=== PATIENT | male | born 1955 | race African-American/Black ===

== ENCOUNTER 2018-06-18 03:44 | Emergency (ER) | payer OTHER ==
[2018-06-18 04:18] LABS: #Eosinphils 0.1 thou/uL (0.0-0.7); #Lymphocytes 2.1 thou/uL (1.20-3.40); #Monocytes 0.6 thou/uL (0.11-0.59); #Neutrophils 4.8 thou/uL (1.40-6.50); %Basophils 0.3 % (0.0-1.0); %Eosinophils 1.6 % (0.0-10.0); %Lymphocytes 27.7 % (21.0-51.0); %Monocytes 7.3 % (0.0-10.0); %Neutrophils 63.1 % (42.0-75.0); Hemoglobin 14.4 g/dL (14.0-18.0); Mean Corpuscular HGB CONC 32.6 g/dL (32.0-36.0); Mean Corpuscular Hemoglobin 28.2 pg (27.0-31.0); Mean Corpuscular Volume 86.6 fL (78.0-98.0); Mean Platelet Volume 7.8 fL (7.4-10.4); Platelet Count 183 thou/uL (130-400); RBC Distribution Width 13.1 % (11.5-14.5); Red Blood Cell (RBC) Count 5.12 mill/uL (4.70-6.10); White Blood Cell (WBC) Count 7.6 thou/uL (4.8-10.8)
[2018-06-18 04:37] LABS: ALT (SGPT) 21 U/L (8-55); AST (SGOT) 28 U/L (5-34); Alkaline Phosphatase 55 U/L (40-150); Anion Gap 12 mmol/L (10-20); BUN (Urea Nitrogen) 15 mg/dL (8.4-25.7); Bilirubin, Total 0.4 mg/dL (0.2-1.2); Calc. Creatinine Clearance 0 mL/min (70-130); Calcium 9.3 mg/dL (7.8-10.44); Carbon Dioxide 25 mmol/L (23-31); Chloride 106 mmol/L (98-107); Estimated GFR-MDRD 71; Globulin 3.5 g/dL (2.4-3.5); Glucose 169 mg/dL (80-115); Potassium 3.1 mmol/L (3.5-5.1); Protein, Total 7.5 g/dL (5.8-8.1); Sodium 140 mmol/L (136-145)
[2018-06-18] MEDS ORDERED: Adacel (T-DAP) 0.5 ML VIAL ONE (04:43)
[2018-06-18] MEDS ORDERED: CEFAZOLIN/Water 2 GM/20 ML SYRINGE ONE (04:43)
[2018-06-18] MEDS ORDERED: Lidocaine 1% w/Epinephrine 1:100K 20 ML VIAL ONE (06:01)
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
--- NOTE | 2018-06-18 08:13 | OP ---
DATE OF PROCEDURE: 06/18/2018 REASON FOR PROCEDURE: Multiple scalp lacerations, complex. Consent was obtained verbally by patient at the bedside. HOSPITALITY SPECIALIST: None. SURGEON: Mauro Larios PA-C DESCRIPTION OF PROCEDURE: After consent was obtained, the patient was supine in the bed. Appropriate equipment was brought to the bedside and coordinated with the emergency department RN. I completed a right supraorbital nerve block with good anesthesia of the forehead with 1% lidocaine with epi. I then focused my attention to the lacerations above the forehead and instilled local lidocaine throughout the skin and was able to achieve good anesthesia for both lacerations. Total lidocaine usage was 13 mL, it was 1% with epinephrine. The patient after anesthesia with local confirmed, the wound was irrigated with a jet irrigation with warm saline. The entire wound was able to be evaluated. There was no debris. No foreign bodies that were noted in either wound. The most anterior wound is larger, and has a flap. It does involve the glial layer in one place with a small flap, it does not have much disruption. There is no active bleeding, no vessel involvement that I am able to appreciate. There is a small hematoma about the right occiput noted around the wound. After thorough irrigation with 1 liter of saline the glial layer was closed with 1 interrupted 5-0 Vicryl suture. Then, the skin was closed on the forehead with a simple interrupted 5-0 nylon sutures, a total of 9 with good approximation of the skin. The remainder of the wound was closed with denisha. Both the posterior portion of the scalp wound and the occiput wound a total of 12 denisha were used. The forehead was lastly completed approximation with Dermabond. The patient tolerated the procedure well and the margins are approximated and intact. Bleeding has remained controlled. I have given wound care instructions. A dressing will be applied by nursing with antibiotic ointment. The patient is to have his facial forehead nylon sutures removed in 5 -6 days. The denisha in the scalp can be removed in 7-10 days. He is understood the same. No blood loss. MTDD
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
== END 2018-06-18 08:35 | disposition home or self-care (01) ==
LOC: ERS 03:44
DX: S12.400A Unspecified displaced fracture of fifth cervical vertebra, initial encounter for closed fracture (principal); S12.500A Unspecified displaced fracture of sixth cervical vertebra, initial encounter for closed fracture; S01.01XA Laceration without foreign body of scalp, initial encounter; E78.5 Hyperlipidemia, unspecified; I10 Essential (primary) hypertension; Z87.442 Personal history of urinary calculi; V60.5XXA Driver of heavy transport vehicle injured in collision with pedestrian or animal in traffic accident, initial encounter
CPT/HCPCS: 70450; 71045; 72125; 80053; 85025; 86850; 86900; 86901; 90471; 90715; 96365; G0390; J2001

== ENCOUNTER 2018-08-19 09:37 | Outpatient (CLI) | payer OTHER ==
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
== END 2018-08-19 09:38 | disposition home or self-care (01) ==
LOC: TBSIIMAG 09:37
PROVIDERS: ATTEND Neurological Surgery
DX: S12.9XXA Fracture of neck, unspecified, initial encounter (principal); M46.92 Unspecified inflammatory spondylopathy, cervical region
CPT/HCPCS: 72040

== ENCOUNTER 2020-12-07 14:47 | Inpatient (IN) | payer OTHER, SELFPAY ==
[2020-12-07 15:44] LABS: #Lymphocytes 0.7 thou/uL (1.20-3.40); #Monocytes 0.6 thou/uL (0.11-0.59); #Neutrophils 10.8 thou/uL (1.40-6.50); %Monocytes 4.6 % (0.0-10.0); %Neutrophils 89.4 % (42.0-75.0); Hemoglobin 14.7 g/dL (14.0-18.0); Mean Corpuscular HGB CONC 32.5 g/dL (32.0-36.0); Mean Corpuscular Hemoglobin 28.4 pg (27.0-31.0); Mean Corpuscular Volume 87.4 fL (78.0-98.0); Mean Platelet Volume 7.7 fL (7.4-10.4); Platelet Count 184 thou/uL (130-400); RBC Distribution Width 12.7 % (11.5-14.5); Red Blood Cell (RBC) Count 5.16 mill/uL (4.70-6.10); White Blood Cell (WBC) Count 12.1 thou/uL (4.8-10.8)
[2020-12-07] MEDS ORDERED: Acetaminophen 325 MG TAB PO PRN (16:14)
[2020-12-07] MEDS ORDERED: Dextrose 50% Abboject 50 ML SYRINGE SLOW IVP PRN (16:14)
[2020-12-07] MEDS ORDERED: Ondansetron PF 4 MG/2 ML Vial IVP PRN (16:14)
[2020-12-07] MEDS ORDERED: Ondansetron ODT 4 MG TAB PO PRN (16:14)
[2020-12-07] MEDS ORDERED: Dextrose 5% in Water 1,000 ML IV PRN (16:14)
[2020-12-07] MEDS ORDERED: HumaLOG 300 UNITS/3 ML VIAL SC PRN ×2 (16:16)
[2020-12-07] MEDS ORDERED: hydrALAZINE 20 MG/ML VIAL SLOW IVP PRN (16:18)
[2020-12-07] MEDS ORDERED: Acetaminophen 500 MG TAB PO PRN (16:29)
[2020-12-07] MEDS ORDERED: Lactated Ringer's 1,000 ML IV SCH (16:30)
[2020-12-07] MEDS ORDERED: Hydrochlorothiazide 25 MG TAB PO SCH (17:00)
[2020-12-07 17:30] LABS: Anion Gap 11 mmol/L (10-20); BUN (Urea Nitrogen) 10 mg/dL (8.4-25.7); Calc. Creatinine Clearance 0 mL/min (70-130); Carbon Dioxide 28 mmol/L (23-31); Chloride 105 mmol/L (98-107); Potassium 3.4 mmol/L (3.5-5.1); Sodium 141 mmol/L (136-145)
[2020-12-07 17:31] LABS: ALT (SGPT) 32 U/L (8-55); AST (SGOT) 28 U/L (5-34); Albumin 4.1 g/dL (3.4-4.8); Alkaline Phosphatase 49 U/L (40-110); Bilirubin, Total 0.6 mg/dL (0.2-1.2); Calcium 8.6 mg/dL (7.8-10.44); Globulin 3.5 g/dL (2.4-3.5); Glucose 145 mg/dL (80-115); Protein, Total 7.6 g/dL (5.8-8.1)
[2020-12-07 18:22] VITALS: BMI 36.5
[2020-12-07] MEDS ORDERED: Ketorolac Tromethamine 30 MG/ML VIAL IVP PRN (19:08)
[2020-12-07] MEDS: Lactated Ringer's 1,000 ML IV SCH (20:00)
[2020-12-07] MEDS: cefTRIAXone\\ROCEPHIN 2 GM in Sodium Chloride 0.9% 100 ML IVPB SCH (20:00)
[2020-12-07] MEDS: metroNIDAZOLE 500 MG in Premix Bag 1 BAG IVPB SCH (22:12)
[2020-12-07 22:55] LABS: Amphetamine Not Detected (NotDetected); Barbiturates Screen Not Detected (NotDetected); Benzodiazepine Screen Not Detected (NotDetected); Cocaine Metabolite Screen Not Detected (NotDetected); Medtox Control Line Valid? VALID (VALID); Medtox Reader # READER 1; Methadone Not Detected (NotDetected); Methamphetamine Not Detected (NotDetected); Opiate Screen Detected (NotDetected); Oxycodone Screen Not Detected (NotDetected); Phencyclidine (PCP) Not Detected (NotDetected); THC/Cannabinoid Screen Not Detected (NotDetected); Tricyclic Screen Not Detected (NotDetected)
[2020-12-08 04:40] LABS: #Lymphocytes 1.5 thou/uL (1.20-3.40); #Monocytes 1.3 thou/uL (0.11-0.59); %Basophils 0.1 % (0.0-1.0); %Eosinophils 0.1 % (0.0-10.0); %Lymphocytes 10.2 % (21.0-51.0); %Monocytes 8.6 % (0.0-10.0); Hemoglobin 13.4 g/dL (14.0-18.0); Mean Corpuscular HGB CONC 32.3 g/dL (32.0-36.0); Mean Corpuscular Hemoglobin 27.9 pg (27.0-31.0); Mean Corpuscular Volume 86.4 fL (78.0-98.0); Mean Platelet Volume 7.8 fL (7.4-10.4); Platelet Count 180 thou/uL (130-400); RBC Distribution Width 12.9 % (11.5-14.5); Red Blood Cell (RBC) Count 4.82 mill/uL (4.70-6.10); White Blood Cell (WBC) Count 14.8 thou/uL (4.8-10.8)
[2020-12-08 05:05] LABS: Anion Gap 12 mmol/L (10-20); BUN (Urea Nitrogen) 11 mg/dL (8.4-25.7); Calc. Creatinine Clearance 114 mL/min (70-130); Calcium 8.1 mg/dL (7.8-10.44); Carbon Dioxide 27 mmol/L (23-31); Chloride 105 mmol/L (98-107); Glucose 142 mg/dL (80-115); Sodium 141 mmol/L (136-145)
[2020-12-08 05:08] LABS: Potassium 2.8 mmol/L (3.5-5.1)
[2020-12-08] MEDS: metroNIDAZOLE 500 MG in Premix Bag 1 BAG IVPB SCH ×3 (05:48→21:56)
[2020-12-08] MEDS: Potassium Chloride 20 MEQ in Premix Bag 1 BAG IVPB SCH ×2 (05:52→09:52)
[2020-12-08] MEDS: Lactated Ringer's 1,000 ML IV SCH ×4 (07:43→23:54)
[2020-12-08] MEDS ORDERED: Magnesium 2 GM/50 ML 2 GM in Premix Bag 1 BAG IVPB SCH (07:45)
[2020-12-08] MEDS ORDERED: Potassium Chloride 20 MEQ TAB PO SCH (07:45)
[2020-12-08 08:03] LABS: Phosphorus 2.3 mg/dL (2.3-4.7)
[2020-12-08] MEDS: Pantoprazole 40 MG VIAL IVP SCH (08:26)
[2020-12-08] MEDS: Hydrochlorothiazide 25 MG TAB PO SCH (08:27)
[2020-12-08] MEDS ORDERED: Enoxaparin Sodium 40 MG/0.4 ML SYRINGE SC SCH (09:00)
[2020-12-08] MEDS: Amlodipine 5 mg/Benazepril 20 mg CAP PO SCH (09:52)
[2020-12-08 11:10] LABS: INR-International Normal Ratio 1.1; Prothrombin Time 14.6 sec (12.0-14.7)
[2020-12-08 11:11] LABS: PTT 29.5 sec (22.9-36.1)
[2020-12-08 11:58] LABS: SARS-CoV-2 NAA Rapid Test Not Detected (NotDetected)
[2020-12-08] MEDS ORDERED: Fentanyl 100 MCG/2 ML VIAL ONE (13:21)
[2020-12-08 13:26] LABS: Anion Gap 13 mmol/L (10-20); BUN (Urea Nitrogen) 10 mg/dL (8.4-25.7); Calc. Creatinine Clearance 113 mL/min (70-130); Calcium 8.4 mg/dL (7.8-10.44); Carbon Dioxide 27 mmol/L (23-31); Chloride 102 mmol/L (98-107); Glucose 133 mg/dL (80-115); Potassium 3.2 mmol/L (3.5-5.1); Sodium 139 mmol/L (136-145)
[2020-12-08] MEDS ORDERED: metroNIDAZOLE 500 MG/100 ML BAG ONE (13:26)
[2020-12-08] MEDS ORDERED: Bupivacaine 0.25% HCL 30 ML VIAL ONE (13:29)
[2020-12-08] MEDS ORDERED: Lidocaine 1% w/Epinephrine 1:100K 20 ML VIAL ONE (13:29)
[2020-12-08] MEDS ORDERED: Lidocaine 1% PF 5 ML VIAL ONE (14:03)
[2020-12-08] MEDS ORDERED: Rocuronium Bromide 10 MG/ML (10ML VIAL) ONE (14:03)
[2020-12-08] MEDS ORDERED: ePHEDrine 50 MG/ML VIAL ONE (14:03)
[2020-12-08] MEDS ORDERED: PHENYLEPHRINE-NS 100 MCG/ML 10 ML SYRINGE ONE (14:03)
[2020-12-08] MEDS ORDERED: Calcium Chloride 1 GM/10 ML Abboject SYRINGE ONE (14:03)
[2020-12-08] MEDS ORDERED: PROPOFOL 200 MG/20 ML VIAL ONE (14:03)
[2020-12-08] MEDS ORDERED: Glycopyrrolate 0.2 MG/ML 5 ML SYRINGE ONE (14:03)
[2020-12-08] MEDS ORDERED: SUGAMMADEX SODIUM 200 MG/2 ML VIAL ONE (15:29)
[2020-12-08] MEDS ORDERED: traMADol HCl 50 MG TAB PO PRN (15:53)
[2020-12-08] MEDS ORDERED: Promethazine HCl 25 MG/ML VIAL SLOW IVP PRN (15:54)
[2020-12-08] MEDS ORDERED: Ondansetron HCl/PF 4 MG/2 ML Vial IVP PRN (15:54)
[2020-12-08] MEDS ORDERED: Promethazine HCl 25 MG/ML VIAL IM PRN (15:54)
[2020-12-08] MEDS: traMADol HCl 50 MG TAB PO SCH ×2 (16:54→21:53)
[2020-12-08] MEDS: cefTRIAXone\\ROCEPHIN 2 GM in Sodium Chloride 0.9% 100 ML IVPB SCH (16:56)
[2020-12-08] MEDS: Acetaminophen 500 MG TAB PO SCH ×2 (18:08→23:52)
[2020-12-09] MEDS: traMADol HCl 50 MG TAB PO SCH ×3 (04:23→15:07)
[2020-12-09] MEDS: metroNIDAZOLE 500 MG in Premix Bag 1 BAG IVPB SCH (05:20)
[2020-12-09] MEDS: Acetaminophen 500 MG TAB PO SCH ×2 (05:21→13:19)
[2020-12-09 05:32] LABS: ALT (SGPT) 76 U/L (8-55); AST (SGOT) 66 U/L (5-34); Albumin 3.4 g/dL (3.4-4.8); Alkaline Phosphatase 46 U/L (40-110); Anion Gap 12 mmol/L (10-20); BUN (Urea Nitrogen) 10 mg/dL (8.4-25.7); Bilirubin, Direct 0.6 mg/dL (0.1-0.3); Bilirubin, Total 1.3 mg/dL (0.2-1.2); Calc. Creatinine Clearance 118 mL/min (70-130); Calcium 8.5 mg/dL (7.8-10.44); Carbon Dioxide 29 mmol/L (23-31); Chloride 100 mmol/L (98-107); Glucose 119 mg/dL (80-115); Potassium 3.2 mmol/L (3.5-5.1); Protein, Total 6.9 g/dL (5.8-8.1); Sodium 138 mmol/L (136-145)
[2020-12-09 05:52] LABS: Eosinophils 2 % (0-10); Hemoglobin 13.5 g/dL (14.0-18.0); Lymphocytes 11 % (21-51); MDiff Complete? YES; Mean Corpuscular HGB CONC 31.8 g/dL (32.0-36.0); Mean Corpuscular Hemoglobin 27.7 pg (27.0-31.0); Mean Corpuscular Volume 87.3 fL (78.0-98.0); Mean Platelet Volume 7.7 fL (7.4-10.4); Monocytes 7 % (0-10); Neutrophil 80 % (42-75); Platelet Count 171 thou/uL (130-400); Platelet Morphology Comment Appears Adequate; RBC Distribution Width 13.1 % (11.5-14.5); Red Blood Cell (RBC) Count 4.87 mill/uL (4.70-6.10); White Blood Cell (WBC) Count 16.3 thou/uL (4.8-10.8)
[2020-12-09] MEDS ORDERED: Potassium Chloride 20 MEQ TAB PO SCH (06:15)
[2020-12-09] MEDS ORDERED: Amlodipine 5 mg/Benazepril 20 mg CAP PO SCH (09:00)
[2020-12-09] MEDS: Hydrochlorothiazide 25 MG TAB PO SCH (09:39)
[2020-12-09] MEDS: Amlodipine 5 mg/Benazepril 20 mg CAP PO SCH (09:39)
[2020-12-09] MEDS: Pantoprazole 40 MG VIAL IVP SCH (09:39)
[2020-12-09 13:19] VITALS: BP 142/84; TEMP 98.7
[2020-12-09] MEDS ORDERED: metroNIDAZOLE 500 MG TAB PO SCH (15:00)
== END 2020-12-09 15:45 | disposition home or self-care (01) | DRG 418 ==
LOC: ERS 14:47 → ONC 15:26 → INTOOBSV 15:26 → OBSVTOIN 12-09 06:09
PROVIDERS: ADMIT Student in an Organized Health Care Education/Training Program; ATTEND Student in an Organized Health Care Education/Training Program
PROC: 0FT44ZZ Resection of Gallbladder, Percutaneous Endoscopic Approach (ICD-10-PCS; principal; 2020-12-08)
DX: K80.00 Calculus of gallbladder with acute cholecystitis without obstruction (principal); K56.0 Paralytic ileus; Z20.822 Contact with and (suspected) exposure to COVID-19; K82.A1 Gangrene of gallbladder in cholecystitis; K66.0 Peritoneal adhesions (postprocedural) (postinfection); I10 Essential (primary) hypertension; E78.5 Hyperlipidemia, unspecified; E11.9 Type 2 diabetes mellitus without complications; K57.30 Diverticulosis of large intestine without perforation or abscess without bleeding; E87.6 Hypokalemia; E78.00 Pure hypercholesterolemia, unspecified; R19.5 Other fecal abnormalities; E66.01 Morbid (severe) obesity due to excess calories; Z68.36 Body mass index [BMI] 36.0-36.9, adult; Z79.84 Long term (current) use of oral hypoglycemic drugs; Z79.899 Other long term (current) drug therapy; Z87.442 Personal history of urinary calculi
CPT/HCPCS: 36415; 36416; 76705; 80048; 80076; 80306; 83735; 84100; 85025; 85610; 85730; 86850; 86900; 86901; 88304; 96365; 96366; 96367; 96375; 96376; 99285; C9113; G0378; J0696; J1885; J2704; J3010; J3475; J3480; J3490; S0020; U0002

== ENCOUNTER 2020-12-24 15:35 | Inpatient (IN) | payer OTHER, SELFPAY ==
[~2020-12-24 15:35] MED LIST: Iopamidol-370 76% 500 ML 1 ML ONE
[2020-12-24 16:55] LABS: #Eosinphils 0.1 thou/uL (0.0-0.7); #Lymphocytes 1.5 thou/uL (1.20-3.40); #Monocytes 0.5 thou/uL (0.11-0.59); #Neutrophils 3.4 thou/uL (1.40-6.50); %Basophils 0.4 % (0.0-1.0); %Eosinophils 1.3 % (0.0-10.0); %Lymphocytes 27.9 % (21.0-51.0); %Monocytes 8.5 % (0.0-10.0); %Neutrophils 61.8 % (42.0-75.0); Mean Corpuscular HGB CONC 33.1 g/dL (32.0-36.0); Mean Corpuscular Hemoglobin 28.9 pg (27.0-31.0); Mean Corpuscular Volume 87.2 fL (78.0-98.0); Mean Platelet Volume 7.3 fL (7.4-10.4); Platelet Count 307 thou/uL (130-400); RBC Distribution Width 12.8 % (11.5-14.5); White Blood Cell (WBC) Count 5.5 thou/uL (4.8-10.8)
[2020-12-24 17:22] LABS: ALT (SGPT) 301 U/L (8-55); AST (SGOT) 477 U/L (5-34); Alkaline Phosphatase 91 U/L (40-110); Anion Gap 11 mmol/L (10-20); BUN (Urea Nitrogen) 10 mg/dL (8.4-25.7); Bilirubin, Total 2.1 mg/dL (0.2-1.2); Calc. Creatinine Clearance 0 mL/min (70-130); Calcium 9.1 mg/dL (7.8-10.44); Carbon Dioxide 32 mmol/L (23-31); Chloride 99 mmol/L (98-107); Globulin 3.7 g/dL (2.4-3.5); Glucose 121 mg/dL (80-115); Potassium 3.2 mmol/L (3.5-5.1); Protein, Total 7.7 g/dL (5.8-8.1); Sodium 139 mmol/L (136-145)
[2020-12-24 17:39] LABS: Lipase 1134 U/L (8-78)
[2020-12-24] MEDS ORDERED: Ondansetron PF 4 MG/2 ML Vial ONE (18:05)
[2020-12-24] MEDS ORDERED: Morphine 4 MG/ML VIAL ONE (18:05)
[2020-12-24 19:57] LABS: Bilirubin Negative (Negative); Blood, Urine Negative (Negative); Clarity Clear (Clear); Glucose, Urine (Dipstick) Normal (Negative); Ketone, Urine Negative (Negative); Leukocyte Negative Leu/uL (Negative); Nitrite Negative (Negative); Protein, Urine (Dipstick) Negative (Neg-Trace); Specific Gravity, Urine 1.028 (1.002-1.036); Urobilinogen Normal mg/dL (Less than 2)
[2020-12-24] MEDS ORDERED: Morphine 4 MG/ML VIAL SLOW IVP PRN (21:35)
[2020-12-24] MEDS ORDERED: Ondansetron PF 4 MG/2 ML Vial IVP PRN ×2 (21:45→22:01)
[2020-12-24] MEDS ORDERED: Ondansetron ODT 4 MG TAB SL PRN (21:45)
[2020-12-24] MEDS ORDERED: Sodium Chloride 0.9% 1,000 ML IV SCH (21:45)
[2020-12-24 22:15] LABS: Amphetamine Not Detected (NotDetected); Barbiturates Screen Not Detected (NotDetected); Benzodiazepine Screen Not Detected (NotDetected); Cocaine Metabolite Screen Not Detected (NotDetected); Medtox Control Line Valid? VALID (VALID); Medtox Reader # READER 1; Methadone Not Detected (NotDetected); Methamphetamine Not Detected (NotDetected); Opiate Screen Detected (NotDetected); Oxycodone Screen Not Detected (NotDetected); Phencyclidine (PCP) Not Detected (NotDetected); THC/Cannabinoid Screen Not Detected (NotDetected); Tricyclic Screen Not Detected (NotDetected)
[2020-12-24] MEDS ORDERED: Sodium Chloride 0.9% (PF) 10 ML VIAL FS PRN (22:15)
[2020-12-24 22:27] VITALS: BMI 36.2
[2020-12-24] MEDS: Lactated Ringer's 1,000 ML IV SCH (22:33)
[2020-12-24] MEDS: Potassium Chloride 20 MEQ in Premix Bag 1 BAG IVPB SCH (22:37)
[2020-12-24 22:45] LABS: Hemoglobin A1c 6.9 % (4.0-6.0)
[2020-12-25] MEDS: Potassium Chloride 20 MEQ in Premix Bag 1 BAG IVPB SCH (02:11)
[2020-12-25] MEDS: Lactated Ringer's 1,000 ML IV SCH ×5 (02:11→18:16)
[2020-12-25] MEDS: Morphine 4 MG/ML VIAL SLOW IVP PRN ×2 (03:14→11:58)
[2020-12-25 06:11] LABS: #Eosinphils 0.1 thou/uL (0.0-0.7); #Lymphocytes 1.6 thou/uL (1.20-3.40); #Monocytes 0.4 thou/uL (0.11-0.59); #Neutrophils 2.9 thou/uL (1.40-6.50); %Basophils 0.2 % (0.0-1.0); %Eosinophils 1.7 % (0.0-10.0); %Lymphocytes 31.2 % (21.0-51.0); %Monocytes 8.6 % (0.0-10.0); %Neutrophils 58.3 % (42.0-75.0); Hemoglobin 13.7 g/dL (14.0-18.0); Mean Corpuscular HGB CONC 32.3 g/dL (32.0-36.0); Mean Corpuscular Volume 86.6 fL (78.0-98.0); Mean Platelet Volume 7.5 fL (7.4-10.4); Platelet Count 284 thou/uL (130-400); RBC Distribution Width 12.8 % (11.5-14.5); Red Blood Cell (RBC) Count 4.91 mill/uL (4.70-6.10)
[2020-12-25 06:39] LABS: ALT (SGPT) 399 U/L (8-55); AST (SGOT) 370 U/L (5-34); Albumin 3.5 g/dL (3.4-4.8); Alkaline Phosphatase 109 U/L (40-110); Anion Gap 14 mmol/L (10-20); BUN (Urea Nitrogen) 8 mg/dL (8.4-25.7); Bilirubin, Total 4.3 mg/dL (0.2-1.2); Calc. Creatinine Clearance 148 mL/min (70-130); Calcium 8.8 mg/dL (7.8-10.44); Carbon Dioxide 28 mmol/L (23-31); Cardiac Risk 4.8 (Less than 4.5); Chloride 99 mmol/L (98-107); Cholesterol 159 mg/dl (< 200 Desired); Globulin 3.3 g/dL (2.4-3.5); Glucose 139 mg/dL (80-115); HDL Cholesterol 33 mg/dL (>60 Neg Risk); LDL Cholesterol, Calculated 94 mg/dL; Potassium 3.1 mmol/L (3.5-5.1); Protein, Total 6.8 g/dL (5.8-8.1); Sodium 138 mmol/L (136-145); Triglycerides 162 mg/dL (Less than 150)
[2020-12-25] MEDS ORDERED: Dextrose 5% in Water 1,000 ML IV PRN (07:01)
[2020-12-25] MEDS ORDERED: HumaLOG 300 UNITS/3 ML VIAL SC PRN ×2 (07:01)
[2020-12-25] MEDS ORDERED: Dextrose 50% Abboject 50 ML SYRINGE SLOW IVP PRN (07:01)
[2020-12-25] MEDS ORDERED: Potassium Chloride 20 MEQ in Premix Bag 1 BAG IVPB SCH (07:15)
[2020-12-25] MEDS ORDERED: Potassium Chloride 20 MEQ in Sodium Chloride 0.9% 250 ML 250 ML IVPB SCH (07:30)
[2020-12-25] MEDS: Enoxaparin Sodium 40 MG/0.4 ML SYRINGE SC SCH (08:10)
[2020-12-25] MEDS: Famotidine/PF 20 mg/2ml Vial SLOW IVP SCH (08:10)
[2020-12-25 12:43] LABS: SARS-CoV-2 PCR by NAA Not Detected (NotDetected)
[2020-12-25 14:13] LABS: HBCM Index 0.08 S/CO (0-0.79); HBSAg Index 0.19 S/CO (0-0.99); Hep A IgM AB Non-Reactive (NonReactive); Hep A IgM S/CO 0.21 S/CO (0-0.79); Hep B Surf Ag Non-Reactive S/CO (NonReactive); Hep C IgG Ab Non-Reactive (NonReactive); Hep C Index 0.07 S/CO (0-0.79); Hepatitis B Core IgM Abs Non-Reactive (NonReactive)
[2020-12-25] MEDS ORDERED: Pantoprazole 40 MG VIAL IVP SCH (21:00)
[2020-12-26] MEDS: Lactated Ringer's 1,000 ML IV SCH ×6 (03:34→20:53)
[2020-12-26 06:05] LABS: #Eosinphils 0.1 thou/uL (0.0-0.7); #Lymphocytes 1.8 thou/uL (1.20-3.40); #Monocytes 0.6 thou/uL (0.11-0.59); #Neutrophils 2.9 thou/uL (1.40-6.50); %Basophils 0.6 % (0.0-1.0); %Eosinophils 2.3 % (0.0-10.0); %Lymphocytes 32.5 % (21.0-51.0); %Monocytes 11.5 % (0.0-10.0); %Neutrophils 53.1 % (42.0-75.0); Hemoglobin 12.4 g/dL (14.0-18.0); Mean Corpuscular HGB CONC 33.5 g/dL (32.0-36.0); Mean Corpuscular Volume 86.8 fL (78.0-98.0); Mean Platelet Volume 7.5 fL (7.4-10.4); Platelet Count 249 thou/uL (130-400); RBC Distribution Width 12.7 % (11.5-14.5); Red Blood Cell (RBC) Count 4.29 mill/uL (4.70-6.10); White Blood Cell (WBC) Count 5.5 thou/uL (4.8-10.8)
[2020-12-26 06:29] LABS: ALT (SGPT) 242 U/L (8-55); AST (SGOT) 111 U/L (5-34); Alkaline Phosphatase 97 U/L (40-110); Anion Gap 14 mmol/L (10-20); BUN (Urea Nitrogen) 8 mg/dL (8.4-25.7); Bilirubin, Total 1.3 mg/dL (0.2-1.2); Calc. Creatinine Clearance 128 mL/min (70-130); Calcium 8.5 mg/dL (7.8-10.44); Carbon Dioxide 27 mmol/L (23-31); Chloride 104 mmol/L (98-107); Globulin 3.1 g/dL (2.4-3.5); Glucose 118 mg/dL (80-115); Potassium 3.5 mmol/L (3.5-5.1); Protein, Total 6.1 g/dL (5.8-8.1); Sodium 141 mmol/L (136-145)
[2020-12-26] MEDS: Famotidine/PF 20 mg/2ml Vial SLOW IVP SCH (07:56)
[2020-12-26] MEDS: Enoxaparin Sodium 40 MG/0.4 ML SYRINGE SC SCH (07:56)
[2020-12-26] MEDS ORDERED: Iothalamate Meglumine 60% 50 ML VIAL FS ONE (12:59)
[2020-12-26] MEDS ORDERED: Indomethacin 50 MG SUPP ONE (13:00)
[2020-12-26] MEDS ORDERED: Fentanyl 100 MCG/2 ML VIAL ONE (13:11)
[2020-12-26] MEDS ORDERED: Levofloxacin 500 mg/D5W 100 ml Premix Bag ONE (13:14)
[2020-12-26] MEDS ORDERED: Ondansetron PF 4 MG/2 ML Vial ONE (13:26)
[2020-12-26] MEDS ORDERED: PROPOFOL 200 MG/20 ML VIAL ONE (13:26)
[2020-12-26] MEDS ORDERED: Glycopyrrolate 0.2 MG/ML 5 ML SYRINGE ONE (13:26)
[2020-12-26] MEDS ORDERED: Rocuronium Bromide 10 MG/ML (10ML VIAL) ONE (13:26)
[2020-12-26] MEDS ORDERED: Lidocaine 1% PF 5 ML VIAL ONE (13:26)
[2020-12-26] MEDS ORDERED: Ondansetron HCl/PF 4 MG/2 ML Vial IVP PRN (14:19)
[2020-12-26] MEDS ORDERED: Promethazine HCl 25 MG/ML VIAL SLOW IVP PRN (14:19)
[2020-12-26] MEDS ORDERED: Promethazine HCl 25 MG/ML VIAL IM PRN (14:19)
[2020-12-27] MEDS: Lactated Ringer's 1,000 ML IV SCH ×2 (01:21→05:10)
[2020-12-27 06:59] LABS: #Eosinphils 0.1 thou/uL (0.0-0.7); #Monocytes 0.4 thou/uL (0.11-0.59); #Neutrophils 2.5 thou/uL (1.40-6.50); %Basophils 0.7 % (0.0-1.0); %Eosinophils 1.9 % (0.0-10.0); %Lymphocytes 39.7 % (21.0-51.0); %Monocytes 8.2 % (0.0-10.0); %Neutrophils 49.4 % (42.0-75.0); Hemoglobin 13.8 g/dL (14.0-18.0); Mean Corpuscular HGB CONC 32.6 g/dL (32.0-36.0); Mean Corpuscular Hemoglobin 28.5 pg (27.0-31.0); Mean Corpuscular Volume 87.4 fL (78.0-98.0); Mean Platelet Volume 7.8 fL (7.4-10.4); Platelet Count 245 thou/uL (130-400); RBC Distribution Width 12.8 % (11.5-14.5); Red Blood Cell (RBC) Count 4.86 mill/uL (4.70-6.10)
[2020-12-27 07:25] LABS: ALT (SGPT) 173 U/L (8-55); AST (SGOT) 62 U/L (5-34); Albumin 3.3 g/dL (3.4-4.8); Alkaline Phosphatase 89 U/L (40-110); Anion Gap 15 mmol/L (10-20); BUN (Urea Nitrogen) 8 mg/dL (8.4-25.7); Calc. Creatinine Clearance 127 mL/min (70-130); Calcium 8.4 mg/dL (7.8-10.44); Carbon Dioxide 21 mmol/L (23-31); Chloride 103 mmol/L (98-107); Globulin 3.6 g/dL (2.4-3.5); Glucose 127 mg/dL (80-115); Lipase 30 U/L (8-78); Potassium 3.8 mmol/L (3.5-5.1); Protein, Total 6.9 g/dL (5.8-8.1); Sodium 135 mmol/L (136-145)
[2020-12-27] MEDS: Enoxaparin Sodium 40 MG/0.4 ML SYRINGE SC SCH (08:05)
[2020-12-27] MEDS: Famotidine/PF 20 mg/2ml Vial SLOW IVP SCH (08:05)
[2020-12-27 10:52] VITALS: BP 111/73; TEMP 98.2
[2020-12-28 15:01] LABS: ANA Symphony (Qualitative) Negative (Negative); ANA Symphony (Quantitative) 0.2 Ratio (< 0.7 Negative); dsDNA IgG Antibody 0.6 IU/mL (<10 Negative)
[2020-12-28 15:02] LABS: EliA Vaculitis New Method **** NEW METHOD ****; Mitochondrial Ab 1.3 U/mL (<4 Negative)
== END 2020-12-27 13:56 | disposition home or self-care (01) | DRG 440 ==
LOC: ERS 15:35 → T4-B 20:10
PROVIDERS: ADMIT Family Medicine; ATTEND Family Medicine
PROC: 0FJB8ZZ Inspection of Hepatobiliary Duct, Via Natural or Artificial Opening Endoscopic (ICD-10-PCS; principal; 2020-12-26)
PROC: 0FJD8ZZ Inspection of Pancreatic Duct, Via Natural or Artificial Opening Endoscopic (ICD-10-PCS; 2020-12-26)
PROC: BF111ZZ Fluoroscopy of Biliary and Pancreatic Ducts using Low Osmolar Contrast (ICD-10-PCS; 2020-12-26)
DX: K85.90 Acute pancreatitis without necrosis or infection, unspecified (principal); I10 Essential (primary) hypertension; Z20.822 Contact with and (suspected) exposure to COVID-19; E78.5 Hyperlipidemia, unspecified; E11.9 Type 2 diabetes mellitus without complications; K29.80 Duodenitis without bleeding; R74.01 Elevation of levels of liver transaminase levels; E87.6 Hypokalemia; E78.00 Pure hypercholesterolemia, unspecified; E66.9 Obesity, unspecified; Z87.442 Personal history of urinary calculi; Z79.84 Long term (current) use of oral hypoglycemic drugs; Z79.899 Other long term (current) drug therapy; Z68.36 Body mass index [BMI] 36.0-36.9, adult
CPT/HCPCS: 36415; 36416; 74177; 74181; 74330; 76705; 80053; 80061; 80074; 80306; 81003; 82248; 83036; 83516; 83615; 83690; 83735; 85025; 86038; 86225; 87338; 87635; 93005; 96374; 96375; J1650; J1956; J2270; J2405; J2704; J3010; J3480; J7050; Q9961; Q9967; S0028; U0003; U0005